=== PATIENT | male | born 1975 | race American Indian/Alaskan Native ===

== ENCOUNTER 2023-12-23 16:38 | Emergency (ER) | payer BC, SELFPAY ==
[2023-12-23 16:41] VITALS: BMI 27.0
[2023-12-23 16:45] VITALS: BP 129/81
[2023-12-23 17:00] VITALS: BP 129/81
[2023-12-23 17:07] LABS: % Basophils 0.1 % (0-2); % Eosinophils 2.4 % (0-6); % Immature Granulocytes 1.2 % (0-0.5); % Lymphocytes 16.8 % (20.5-51.1); % Monocytes 7.6 % (1.7-9.3); % Neutrophils 71.9 % (42.2-75.2); Absolute Eosinophils 0.2 10^3/uL (0-0.7); Absolute Immature Granulocytes 0.1 10^3/uL (0-0.05); Absolute Lymphocytes 1.7 10^3/uL (1.2-3.4); Absolute Monocytes 0.8 10^3/uL (0.1-0.6); Absolute Neutrophils 7.2 10^3/uL (1.4-6.5); Hematocrit 34.2 % (39.0-52.0); Hemoglobin 11.9 g/dL (13.0-18.0); Mean Corp Hgb Conc. 34.8 g/dL (33.0-37.0); Mean Corpuscular Hgb 27.2 pg (27.0-31.0); Mean Corpuscular Volume 78.1 fL (80.0-94.0); Mean Platelet Volume 9.4 fL (7.4-10.4); Nucleated Red Blood Cells % 0 % (-); Platelet Count 246 10^3/uL (130-400); Red Blood Cell Count 4.38 10^6/uL (4.70-6.10); Red Cell Dist. Width 13.7 % (11.5-14.5)
--- NOTE | 2023-12-23 17:14 | ED TECH ---
Called in training representative, Leslie [employer], who has an [address] Dowell made aware.
[2023-12-23 17:18] LABS: APTT 26.4 Sec (23.4-35.0); Blood Urea Nitrogen 16 mg/dl (9-20); Calcium 8.7 mg/dl (8.4-10.2); Carbon Dioxide 25 mmol/L (22-30); Chloride 102 mmol/L (98-107); Estimated Creatinine Clearance 72 ml/min; Glucose 141 mg/dl (70-99); INR 1.38; PT 16.8 Sec (11.4-14.6); Potassium 3.9 mmol/L (3.5-5.1); Sodium 133 mmol/L (135-145); eGFR > 60.00
[2023-12-23 17:30] LABS: Troponin I 0.031 ng/ml
--- NOTE | 2023-12-23 17:32 | ED.GENMED ---
History of Present Illness
General
Chief Complaint: Chest Pain
Source: patient and family
Exam Limitations: none
Time Seen by Provider: 12/23/23 16:54
Travel History
Have you had any contact with someone who has COVID-19?: No
Do you have any symptoms of coronavirus? Fever > 100 degrees, chills, cough, shortness of breath, sore throat, loss of taste or smell, muscle aches, or headache?: No
History of Present Illness
History of Present Illness:
48-year-old male complaining of sudden chest pain with a unexpected sneeze. Patient had sternotomy 9 days ago for a aortic valve replacement. Mechanical valve. Subtherapeutic INR yesterday. Coumadin dose has been increased. After patient
sneezed he became lightheaded and near syncopal for 5 or 10 minutes. Symptoms have resolved. No other complaints.
Past History
Past History
ED Past Medical History: Other (Bicuspid aortic valve)
ED Past Surgical History: Cardiac (Aortic valve replacement)
Review of Systems
Review of Systems
All Other Systems: Not applicable
Respiratory: Reports no symptoms
ABD/GI: Reports no symptoms
Phy Exam
Physical Exam
Physical Exam:
GENERAL: Alert and oriented in no apparent distress
EYE: Orbits normal.
NECK: Supple
ENT: Pharynx without erythema
CARDIAC: Regular rate and rhythm with mild mechanical midsystolic murmur. Well-healing sternotomy scar.
LUNGS: Clear breath sounds,normal
ABDOMEN: Soft, without focal tenderness or distention
NEUROLOGICAL: Alert and oriented , grossly non-focal
SKIN: Warm and dry, no rash or lesion, no discoloration, skin intact.
MUSCULOSKELETAL: No edema,no deformity.Good color
PSYCH: Normal and appropriate interaction.
Scores
Heart Score for Chest Pain Patients
STEMI patient?: Not applicable
Course
Orders/Labs/Results
Orders:
Orders
12/23/23 16:39
EKG [Electrocardiogram (*1)] Urgent
Reason for Study: Chest Pain
EKG- Treatment ONCE
12/23/23 16:56
IV Insert/Care/Rem.- Treatment PRN
Pulse Ox/cont/shift [RESP] Stat
Quantity: 1
12/23/23 16:57
Electrocardiogram (*1) Stat
Reason for Study: Other
Other Reason for Exam: chest pain
Cardiac Monitoring- Treatment ONCE
EKG- Treatment ONCE
12/23/23 16:58
CT Head W/o Iv Contrast Urgent
Comment:
Reason For Exam: recent earth mover. subtherapeutic inr. near syncope
12/23/23 17:00
Basic Metabolic Panel Urgent
Complete Blood Count/With Diff Urgent
PTT Urgent
Prothrombin Time Urgent
Troponin I Urgent
12/23/23 17:10
Echo 2D MMode Color/Doppler Urgent
Reason for Study: Recent valve replacement. Near syncope
12/23/23 17:36
CT Chest Angio W/wo Iv Contras Urgent
Comment:
Reason For Exam: Chest pain/near syncope/recent valve replacement
12/23/23 19:36
Electrocardiogram (*1) Stat
Reason for Study: Other
Other Reason for Exam: chest pain
EKG- Treatment ONCE
12/23/23 20:11
Troponin I Urgent
Abnormal Lab Results
12/23/23 12/23/23
17:00 20:11
RBC 4.38 L 10^6/uL
(4.70-6.10)
Hgb 11.9 L g/dL
(13.0-18.0)
Hct 34.2 L %
(39.0-52.0)
MCV 78.1 L fL
(80.0-94.0)
Abs Immat Gran (auto) 0.1 H 10^3/uL
(0-0.05)
Absolute Neuts (auto) 7.2 H 10^3/uL
(1.4-6.5)
Absolute Monos (auto) 0.8 H 10^3/uL
(0.1-0.6)
Immature Gran % 1.2 H %
(0-0.5)
Lymphocytes % 16.8 L %
(20.5-51.1)
PT 16.8 H Sec
(11.4-14.6)
Sodium 133 L mmol/L
(135-145)
Glucose 141 H mg/dl
(70-99)
Troponin I 0.035 H* ng/ml
12/23/23 17:00
12/23/23 17:00
Vital Signs
Initial and Last Documented VS:
Initial Vital Signs
Pulse Resp Pulse Ox
96 18 98
12/23/23 16:41 12/23/23 16:41 12/23/23 16:41
Last Documented Vital Signs
Pulse Resp BP Pulse Ox
72 14 127/73 100
12/23/23 21:30 12/23/23 21:30 12/23/23 21:00 12/23/23 21:30
MDM/Problems Addressed
Differential Diagnosis Includes:
Patient's pain clearly was related to sneezing. Has nonspecific EKG changes but clean coronaries and sharp musculoskeletal like chest pain consistent with a sternotomy. 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 He asked for an echocardiogram CT of
the chest and head. Subtherapeutic on INR. Has remained medically stable in the ER
*Radiology
Radiology exam reviewed: radiology read reviewed (CT angiography, head CT negative) and other (Echocardiogram unremarkable and)
*Pulse Oximetry
Patient hypoxic: no
*EKG
Interpreted by ED Provider?: Yes
Interpretation: abnormal
Comparison EKG: changes noted
Heart Rate: 86
Rate: normal
Rhythm: sinus
Rumely: normal axis
Interval: normal interval
QRS Pattern: normal QRS
Ischemia: other (Large S wave inferiorly. Nonspecific ST elevations inferiorly nonspecific ST-T changes. Seen on old EKGs)
*Critical Care Note
Total Time (30-74mins, 75-104mins- exclusive of procedures): Not Applicable
Data Reviewed
Review of Other/Old Records Reveals: Testing
Update Note
Update Note:
48-year-old male. Medically stable. Echocardiogram stable. CT stable. 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 Of note, patient and were given copies of labs. INR is low but Coumadin was only increased last night. They are aware of this
and are following this up. Discharged to follow-up
ED Attending Note
-
Portions of this chart may have been created with voice recognition software.� Occasional wrong word or��sound alike� substitutions may have occurred due to the inherent limitations of voice recognition software.
Discharge Plan
Departure
Patient Disposition: Home (Routine Discharge)
Date of Disposition: 12/23/23
Time of Disposition: 21:30
Patient with high blood pressure during this ER visit?: No
Discharge Problem:
Sudden chest wall pain, Secondary to sneezing, Recent sternotomy, Syncope
Instructions: Chest Pain (DC), Syncope (Fainting) (DC)
Prescriptions:
No Action
famotidine 20 mg Tablet
20 mg PO DAILY Qty: 30 0RF
colchicine 0.6 mg capsule
0.6 mg PO DAILY Qty: 10 0RF
Rx Instructions:
STarting 07/17/2023: 0.6 mg once or twice daily until flare resolves
naproxen 500 mg tablet
500 mg PO BID Qty: 14 0RF
Referrals:
Gokul Friend DO [Family Provider] - Follow up in 2-3 days
Activity Restrictions/Additional Instructions:
Call your airfield operations specialist James morning for close follow-up
Interventions
Interventions:
*Risk Screen - Suicide Last Done: 12/23/23 16:41
*General Assessment Last Done: 12/23/23 16:41
*Neglect/Abuse Screening Last Done: 12/23/23 16:41
ED- Fall Risk Assessment Last Done: 12/23/23 16:41
*ED COVID-19 Vaccine History Last Done: 12/23/23 16:41
*Nursing Disposition Last Done: 12/23/23 21:44
ED- Cardiac Assessment Last Done: 12/23/23 16:41
Discharge Date and Time
Discharge Date/Time: 12/23/23 21:45
[2023-12-23 18:00] VITALS: BP 111/69
[2023-12-23 19:25] VITALS: BP 124/83
[2023-12-23 20:10] VITALS: BP 116/74
[2023-12-23 20:46] LABS: Troponin I 0.035 ng/ml
[2023-12-23 21:00] VITALS: BP 127/73
== END 2023-12-23 21:45 | disposition home or self-care (01) ==
LOC: EMR 16:38
PROVIDERS: EMERGENCY PHYSICIAN Emergency Medicine; FAMILY PHYSICIAN Family Medicine
DX: R07.89 Other chest pain (principal); R55 Syncope and collapse; R06.7 Sneezing
CPT/HCPCS: 99285; 70450; 71275; 80048; 84484; 85025; 85610; 85730; 93005; 93306; Q9967